=== PATIENT | female | born 1955 | race Caucasian/White ===

== ENCOUNTER 2018-05-08 08:33 | Outpatient (CLI) | payer OTHER | END 2018-05-08 08:34 | disposition home or self-care (01) | LOC: BICMAMMO 08:33 | PROVIDERS: ATTEND Family Medicine | DX: Z12.31 Encounter for screening mammogram for malignant neoplasm of breast (principal); Z80.3 Family history of malignant neoplasm of breast; Z85.118 Personal history of other malignant neoplasm of bronchus and lung | CPT/HCPCS: 77063; 77067 ==

== ENCOUNTER 2019-08-20 11:04 | Outpatient (CLI) | payer OTHER ==
--- NOTE | 2019-08-20 14:24 | MMO ---
Bilateral MAMMO Bilat Screen [facility]. CLINICAL HISTORY: Patient is 63 years old and is seen for screening. The patient has the following family history of breast cancer: maternal aunt, malignant (generic). The patient has a history of lung cancer at age 54. VIEWS: The views performed were: bilateral craniocaudal with tomosynthesis and bilateral mediolateral oblique with tomosynthesis. FILMS COMPARED: The present examination has been compared to prior imaging studies performed at [facility] on 03/15/2013, 02/22/2015, 04/16/2016 and 05/08/2018. This study has been interpreted with the assistance of computer-aided detection. MAMMOGRAM FINDINGS: There are scattered fibroglandular densities. There are no suspicious masses, suspicious calcifications, or new areas of architectural distortion. IMPRESSION: THERE IS NO MAMMOGRAPHIC EVIDENCE OF MALIGNANCY. A ROUTINE FOLLOW-UP MAMMOGRAM IN 1 YEAR IS RECOMMENDED. THE RESULTS OF THIS EXAM WERE SENT TO THE PATIENT. ACR BI-RADS Category 1 - Negative MAMMOGRAPHY NOTE: 1. A negative mammogram report should not delay a biopsy if a dominant of clinically suspicious mass is present. 2. Approximately 10% to 15% of breast cancers are not detected by mammography. 3. Adenosis and dense breasts may obscure an underlying neoplasm. Reported by: MARY PAEZ MD Electonically Signed: [id number]
== END 2019-08-20 11:05 | disposition home or self-care (01) ==
LOC: BICMAMMO 11:04
PROVIDERS: ATTEND Family Medicine
DX: Z12.31 Encounter for screening mammogram for malignant neoplasm of breast (principal); Z80.3 Family history of malignant neoplasm of breast; Z85.118 Personal history of other malignant neoplasm of bronchus and lung
CPT/HCPCS: 77063; 77067

== ENCOUNTER 2020-11-23 18:56 | Inpatient (IN) | payer MEDICARE ==
[2020-11-23 19:20] LABS: #Eosinphils 0.2 thou/uL (0.0-0.7); #Monocytes 0.8 thou/uL (0.11-0.59); #Neutrophils 8.4 thou/uL (1.40-6.50); %Basophils 0.4 % (0.0-1.0); %Eosinophils 1.8 % (0.0-10.0); %Lymphocytes 17.2 % (21.0-51.0); %Monocytes 6.8 % (0.0-10.0); %Neutrophils 73.8 % (42.0-75.0); Hemoglobin 10.7 g/dL (12.0-16.0); Mean Corpuscular HGB CONC 34.1 g/dL (32.0-36.0); Mean Corpuscular Hemoglobin 29.7 pg (27.0-31.0); Mean Corpuscular Volume 86.9 fL (78.0-98.0); Mean Platelet Volume 6.9 fL (7.4-10.4); Platelet Count 307 thou/uL (130-400); RBC Distribution Width 13.4 % (11.5-14.5); Red Blood Cell (RBC) Count 3.61 mill/uL (4.20-5.40); White Blood Cell (WBC) Count 11.4 thou/uL (4.8-10.8)
[2020-11-23 19:28] LABS: PTT 27.6 sec (22.9-36.1); Prothrombin Time 13.2 sec (12.0-14.7)
[2020-11-23 19:39] LABS: ALT (SGPT) 23 U/L (8-55); AST (SGOT) 24 U/L (5-34); Albumin 4.2 g/dL (3.4-4.8); Alkaline Phosphatase 129 U/L (40-110); Anion Gap 16 mmol/L (10-20); BUN (Urea Nitrogen) 33 mg/dL (9.8-20.1); Bilirubin, Total 0.4 mg/dL (0.2-1.2); Calc. Creatinine Clearance 0 mL/min (70-130); Calcium 9.6 mg/dL (7.8-10.44); Carbon Dioxide 26 mmol/L (23-31); Chloride 94 mmol/L (98-107); Globulin 3.4 g/dL (2.4-3.5); Glucose 124 mg/dL (80-115); Potassium 3.6 mmol/L (3.5-5.1); Protein, Total 7.6 g/dL (5.8-8.1); Sodium 132 mmol/L (136-145)
[2020-11-23] MEDS ORDERED: hydrALAZINE 25 MG TAB ONE (20:41)
[2020-11-23] MEDS ORDERED: hydrALAZINE 20 MG/ML VIAL ONE (20:44)
[2020-11-23] MEDS ORDERED: niCARdipine 20MG In NaCl 20 MG/200 ML BAG ONE (22:08)
[2020-11-24 00:13] LABS: SARS-CoV-2 NAA Rapid Test Not Detected (NotDetected)
[2020-11-24] MEDS ORDERED: niCARdipine 25 MG in Sodium Chloride 0.9% 250 ML 240 ML IVPB SCH (01:00)
[2020-11-24] MEDS ORDERED: Acetaminophen 325 MG TAB PO PRN ×2 (01:00→02:23)
[2020-11-24] MEDS ORDERED: Ondansetron ODT 4 MG TAB SL PRN (01:00)
[2020-11-24] MEDS ORDERED: Ondansetron PF 4 MG/2 ML Vial IVP PRN ×2 (01:00→02:23)
[2020-11-24 01:04] VITALS: BMI 24.8
[2020-11-24] MEDS ORDERED: Melatonin 3 MG TAB PO PRN (02:29)
[2020-11-24] MEDS ORDERED: Amitriptyline HCl 100 MG TAB PO SCH ×2 (02:30→21:00)
[2020-11-24] MEDS ORDERED: HumaLOG 300 UNITS/3 ML VIAL SC PRN (02:31)
[2020-11-24] MEDS ORDERED: Dextrose 5% in Water 1,000 ML IV PRN (02:31)
[2020-11-24] MEDS ORDERED: Dextrose 50% Abboject 50 ML SYRINGE SLOW IVP PRN (02:31)
[2020-11-24 04:02] LABS: #Eosinphils 0.2 thou/uL (0.0-0.7); #Lymphocytes 2.1 thou/uL (1.20-3.40); #Monocytes 0.8 thou/uL (0.11-0.59); #Neutrophils 7.9 thou/uL (1.40-6.50); %Basophils 0.4 % (0.0-1.0); %Eosinophils 1.5 % (0.0-10.0); %Lymphocytes 19.1 % (21.0-51.0); %Monocytes 6.9 % (0.0-10.0); Hemoglobin 10.7 g/dL (12.0-16.0); Mean Corpuscular HGB CONC 33.7 g/dL (32.0-36.0); Mean Corpuscular Hemoglobin 29.3 pg (27.0-31.0); Mean Corpuscular Volume 86.8 fL (78.0-98.0); Mean Platelet Volume 7.5 fL (7.4-10.4); Platelet Count 305 thou/uL (130-400); RBC Distribution Width 13.5 % (11.5-14.5); Red Blood Cell (RBC) Count 3.64 mill/uL (4.20-5.40)
[2020-11-24 04:23] LABS: Anion Gap 15 mmol/L (10-20); BUN (Urea Nitrogen) 30 mg/dL (9.8-20.1); Calc. Creatinine Clearance 40 mL/min (70-130); Calcium 9.2 mg/dL (7.8-10.44); Carbon Dioxide 28 mmol/L (23-31); Chloride 97 mmol/L (98-107); Glucose 101 mg/dL (80-115); Potassium 3.3 mmol/L (3.5-5.1); Sodium 137 mmol/L (136-145)
[2020-11-24] MEDS ORDERED: Potassium Chloride 20 MEQ TAB PO SCH (08:45)
[2020-11-24] MEDS: Famotidine 20 MG TAB PO SCH (09:00)
[2020-11-24] MEDS: Hydrochlorothiazide 25 MG TAB PO SCH (09:00)
[2020-11-24] MEDS ORDERED: Acyclovir 400 mg Tablet PO SCH (09:00)
[2020-11-24] MEDS: DULoxetine 60 MG CAP PO SCH (09:00)
[2020-11-24] MEDS: Ferrous Sulfate 325 MG TAB PO SCH (09:00)
[2020-11-24] MEDS: Valsartan 80 MG TAB PO SCH (09:00)
[2020-11-24] MEDS ORDERED: Amlodipine 5 MG TAB PO SCH (11:00)
[2020-11-24] MEDS ORDERED: Simvastatin 10 MG TAB PO SCH (21:00)
[2020-11-24] MEDS ORDERED: Non-Formulary Item 1 EACH (Melatonin/Pyridoxine [Melatonin 5 Mg Tablet] 1 EACH Tablet) PO SCH (21:00)
[2020-11-25 04:17] LABS: #Basophils 0.1 thou/uL (0.0-0.2); #Eosinphils 0.4 thou/uL (0.0-0.7); #Lymphocytes 1.7 thou/uL (1.20-3.40); #Monocytes 0.8 thou/uL (0.11-0.59); #Neutrophils 6.9 thou/uL (1.40-6.50); %Basophils 0.6 % (0.0-1.0); %Eosinophils 3.7 % (0.0-10.0); %Lymphocytes 17.4 % (21.0-51.0); %Monocytes 8.5 % (0.0-10.0); %Neutrophils 69.8 % (42.0-75.0); Mean Corpuscular HGB CONC 34.1 g/dL (32.0-36.0); Mean Corpuscular Volume 87.8 fL (78.0-98.0); Mean Platelet Volume 7.2 fL (7.4-10.4); Platelet Count 313 thou/uL (130-400); RBC Distribution Width 13.6 % (11.5-14.5); Red Blood Cell (RBC) Count 3.67 mill/uL (4.20-5.40); White Blood Cell (WBC) Count 9.8 thou/uL (4.8-10.8)
[2020-11-25 04:31] LABS: Anion Gap 15 mmol/L (10-20); BUN (Urea Nitrogen) 26 mg/dL (9.8-20.1); Calc. Creatinine Clearance 37 mL/min (70-130); Calcium 9.2 mg/dL (7.8-10.44); Carbon Dioxide 27 mmol/L (23-31); Chloride 100 mmol/L (98-107); Glucose 87 mg/dL (80-115); Potassium 3.9 mmol/L (3.5-5.1); Sodium 138 mmol/L (136-145)
[2020-11-25] MEDS: DULoxetine 60 MG CAP PO SCH (08:02)
[2020-11-25] MEDS: Ferrous Sulfate 325 MG TAB PO SCH (08:03)
[2020-11-25] MEDS: Famotidine 20 MG TAB PO SCH (08:03)
[2020-11-25] MEDS: Valsartan 80 MG TAB PO SCH (08:04)
[2020-11-25] MEDS: Hydrochlorothiazide 25 MG TAB PO SCH (08:04)
[2020-11-25] MEDS ORDERED: Enoxaparin Sodium 40 MG/0.4 ML SYRINGE SC SCH (09:00)
[2020-11-25] MEDS ORDERED: Amlodipine 5 MG TAB PO SCH (09:00)
[2020-11-25 12:15] VITALS: BP 153/79; TEMP 98.4
[2020-11-25 15:08] LABS: Cardiac Risk 4.6 (Less than 4.5)
== END 2020-11-25 15:30 | disposition home or self-care (01) | DRG 69 ==
LOC: ERS 18:56 → CCU 23:09 → 2NO 11-24 14:13
PROVIDERS: ADMIT Internal Medicine; ATTEND Hospitalist
DX: G45.9 Transient cerebral ischemic attack, unspecified (principal); R47.01 Aphasia; I16.1 Hypertensive emergency; Z20.822 Contact with and (suspected) exposure to COVID-19; E78.00 Pure hypercholesterolemia, unspecified; F41.9 Anxiety disorder, unspecified; F32.9 Major depressive disorder, single episode, unspecified; M79.7 Fibromyalgia; I16.0 Hypertensive urgency; I12.9 Hypertensive chronic kidney disease with stage 1 through stage 4 chronic kidney disease, or unspecified chronic kidney disease; N18.30 Chronic kidney disease, stage 3 unspecified; E11.22 Type 2 diabetes mellitus with diabetic chronic kidney disease; Z85.118 Personal history of other malignant neoplasm of bronchus and lung; Z79.84 Long term (current) use of oral hypoglycemic drugs; Z79.899 Other long term (current) drug therapy
CPT/HCPCS: 0240U; 36415; 36416; 70450; 70551; 71045; 80048; 80053; 80061; 84443; 84484; 85025; 85610; 85730; 93005; 93306; 93880; 93976; 94760; 96365; 96366; 96375; 99292; J0360; J1650

== ENCOUNTER 2022-06-07 08:58 | Outpatient (CLI) | payer MEDICARE | END 2022-06-07 08:59 | disposition home or self-care (01) | LOC: BICULT 08:58 | PROVIDERS: ATTEND Nurse Practitioner Family | DX: R74.8 Abnormal levels of other serum enzymes (principal); K76.0 Fatty (change of) liver, not elsewhere classified | CPT/HCPCS: 76700 ==

== ENCOUNTER 2022-09-15 08:05 | Emergency (ER) | payer MEDICARE ==
[2022-09-15 08:50] LABS: #Eosinphils 0.5 thou/uL (0.0-0.7); #Lymphocytes 1.7 thou/uL (1.20-3.40); #Monocytes 0.6 thou/uL (0.11-0.59); %Basophils 0.4 % (0.0-1.0); %Eosinophils 5.1 % (0.0-10.0); %Lymphocytes 17.1 % (21.0-51.0); %Monocytes 6.5 % (0.0-10.0); %Neutrophils 70.9 % (42.0-75.0); Hemoglobin 11.6 g/dL (12.0-16.0); Mean Corpuscular HGB CONC 35.7 g/dL (32.0-36.0); Mean Corpuscular Volume 92.3 fl (78.0-98.0); Mean Platelet Volume 8.8 fL (7.4-10.4); Platelet Count 204 10x3/uL (130-400); RBC Distribution Width 13.3 % (11.5-14.5); Red Blood Cell (RBC) Count 3.53 mill/uL (4.20-5.40); White Blood Cell (WBC) Count 9.8 10x3/uL (4.8-10.8)
[2022-09-15 09:06] LABS: ALT (SGPT) 32 U/L (8-55); AST (SGOT) 32 U/L (5-34); Albumin 3.8 g/dL (3.4-4.8); Alkaline Phosphatase 227 U/L (40-110); Anion Gap 13 mmol/L (10-20); BUN (Urea Nitrogen) 37 mg/dL (9.8-20.1); Bilirubin, Total 0.8 mg/dL (0.2-1.2); Calc. Creatinine Clearance 0 mL/min (70-130); Calcium 9.5 mg/dL (7.8-10.44); Carbon Dioxide 29 mmol/L (23-31); Chloride 98 mmol/L (98-107); Estimated GFR 19; Globulin 3.4 g/dL (2.4-3.5); Glucose 138 mg/dL (80-115); Lipase 35 U/L (8-78); Magnesium 1.8 mg/dL (1.6-2.6); Potassium 3.8 mmol/L (3.5-5.1); Protein, Total 7.2 g/dL (5.8-8.1); Sodium 136 mmol/L (136-145)
[2022-09-15 09:26] LABS: Bilirubin Negative (Negative); Blood, Urine Negative (Negative); Clarity Clear (Clear); Glucose, Urine (Dipstick) Normal (Negative); Ketone, Urine Negative (Negative); Leukocyte Negative Leu/uL (Negative); Nitrite Negative (Negative); Protein, Urine (Dipstick) Negative (Neg-Trace); Specific Gravity, Urine 1.013 (1.002-1.036); Urobilinogen Normal mg/dL (Less than 2); pH, Urine 5.5 (5.0-9.0)
[2022-09-15 11:50] LABS: Troponin I Less than 0.010 ng/mL (< 0.028)
== END 2022-09-15 12:28 | disposition home or self-care (01) ==
LOC: ERS 08:05
DX: R53.1 Weakness (principal); R29.6 Repeated falls; I10 Essential (primary) hypertension; E11.9 Type 2 diabetes mellitus without complications; E78.00 Pure hypercholesterolemia, unspecified; E11.319 Type 2 diabetes mellitus with unspecified diabetic retinopathy without macular edema; Z79.899 Other long term (current) drug therapy; Z79.82 Long term (current) use of aspirin
CPT/HCPCS: 36415; 36416; 70450; 71045; 80053; 81003; 83690; 83735; 83880; 84484; 85025; 93005; 94760

== ENCOUNTER 2024-08-09 17:46 | Inpatient (IN) | payer MEDICARE ==
[2024-08-09 18:20] LABS: #Basophils 0.03 10x3/uL (0.0-0.2); %Basophils 0.2 % (0.0-1.0); %Lymphocytes 7.3 % (21.0-51.0); %Monocytes 5.9 % (0.0-10.0); %Neutrophils 85.2 % (42.0-75.0); Hematocrit 30.3 % (36.0-47.0); Hemoglobin 9.5 g/dL (12.0-16.0); Mean Corpuscular HGB CONC 31.4 g/dL (32.0-36.0); Mean Corpuscular Hemoglobin 28.1 pg (27.0-31.0); Mean Corpuscular Volume 89.6 fL (78.0-98.0); Mean Platelet Volume 10.7 fL (7.4-10.4); Platelet Count 241 10x3/uL (130-400); RBC Distribution Width 13.9 % (11.5-14.5); Red Blood Cell (RBC) Count 3.38 mill/uL (4.20-5.40)
[2024-08-09 18:45] LABS: Troponin I Less than 0.010 ng/mL (< 0.028)
[2024-08-09 18:47] LABS: ALT (SGPT) 32 U/L (8-55); AST (SGOT) 36 U/L (5-34); Albumin 3.4 g/dL (3.4-4.8); Alkaline Phosphatase 266 U/L (40-110); Anion Gap 11 mmol/L (10-20); BUN (Urea Nitrogen) 27 mg/dL (9.8-20.1); Bilirubin, Total 0.5 mg/dL (0.2-1.2); CK (CPK) 34 U/L (29-168); Calc. Creatinine Clearance 0 mL/min (70-130); Calcium 8.7 mg/dL (7.8-10.44); Carbon Dioxide 25 mmol/L (23-31); Chloride 104 mmol/L (98-107); Estimated GFR 28; Globulin 3.3 g/dL (2.4-3.5); Glucose 151 mg/dL (80-115); Potassium 4.1 mmol/L (3.5-5.1); Protein, Total 6.7 g/dL (5.8-8.1); Sodium 136 mmol/L (136-145)
[2024-08-09] MEDS ORDERED: Dextrose 50% Abboject 50 ML SYRINGE SLOW IVP PRN (18:58)
[2024-08-09] MEDS ORDERED: Ipratropium/Albuterol 3 ML NEB NEB PRN (18:58)
[2024-08-09] MEDS ORDERED: Dextrose 5% in Water 1,000 ML IV PRN (18:58)
[2024-08-09] MEDS ORDERED: Glucagon 1 MG/ML KIT IM PRN (18:58)
[2024-08-09] MEDS ORDERED: hydrALAZINE 20 MG/ML VIAL SLOW IVP PRN ×2 (18:58→19:35)
[2024-08-09] MEDS ORDERED: Labetalol HCl 100 MG/20 ML VIAL SLOW IVP PRN (19:35)
[2024-08-09] MEDS: Sodium Chloride 0.9% 1,000 ML IV SCH (21:23)
[2024-08-09] MEDS: Acetaminophen 325 MG TAB PO SCH (21:23)
[2024-08-09] MEDS: Ondansetron PF 4 MG/2 ML Vial IVP PRN (21:24)
[2024-08-09] MEDS: Famotidine/PF 20 mg/2ml Vial SLOW IVP SCH (21:24)
[2024-08-09] MEDS: Acetaminophen 325 MG TAB ONE (21:34)
[2024-08-09] MEDS: hydrALAZINE 20 MG/ML VIAL SLOW IVP PRN (22:29)
[2024-08-09] MEDS: Morphine 2 MG/ML VIAL SLOW IVP SCH (23:13)
[2024-08-10] MEDS: Labetalol HCl 100 MG/20 ML VIAL SLOW IVP PRN (02:06)
[2024-08-10] MEDS: niCARdipine 25 MG in Sodium Chloride 0.9% 250 ML 250 ML IVPB SCH (03:19)
[2024-08-10 05:00] LABS: #Basophils 0.03 10x3/uL (0.0-0.2); %Basophils 0.4 % (0.0-1.0); %Eosinophils 1.2 % (0.0-10.0); %Lymphocytes 12.5 % (21.0-51.0); %Monocytes 10.4 % (0.0-10.0); %Neutrophils 74.9 % (42.0-75.0); Hematocrit 25.8 % (36.0-47.0); Hemoglobin 8.3 g/dL (12.0-16.0); Mean Corpuscular HGB CONC 32.2 g/dL (32.0-36.0); Mean Corpuscular Hemoglobin 29.1 pg (27.0-31.0); Mean Corpuscular Volume 90.5 fL (78.0-98.0); Mean Platelet Volume 10.4 fL (7.4-10.4); Platelet Count 230 10x3/uL (130-400); RBC Distribution Width 13.8 % (11.5-14.5); Red Blood Cell (RBC) Count 2.85 mill/uL (4.20-5.40)
[2024-08-10 05:08] LABS: Anion Gap 12 mmol/L (10-20); BUN (Urea Nitrogen) 23 mg/dL (9.8-20.1); Calc. Creatinine Clearance 34 mL/min (70-130); Calcium 8.4 mg/dL (7.8-10.44); Carbon Dioxide 23 mmol/L (23-31); Chloride 108 mmol/L (98-107); Estimated GFR 35; Glucose 105 mg/dL (80-115); Potassium 3.8 mmol/L (3.5-5.1); Sodium 139 mmol/L (136-145)
[2024-08-10 05:29] LABS: INR-International Normal Ratio 1.2; PTT 28.1 sec (22.9-36.1); Prothrombin Time 14.9 sec (12.0-14.7)
[2024-08-10 06:42] VITALS: BMI 22.4
[2024-08-10] MEDS: Carvedilol 25 MG TAB PO SCH (17:18)
[2024-08-10] MEDS: Amlodipine 5 MG TAB PO SCH (19:49)
[2024-08-10] MEDS ORDERED: Benzocaine/Menthol 1 LOZ LOZ PO PRN (20:37)
[2024-08-10] MEDS: hydrALAZINE 25 MG TAB PO SCH (21:11)
[2024-08-10] MEDS: Amitriptyline HCl 100 MG TAB PO SCH (21:11)
[2024-08-10] MEDS: Famotidine/PF 20 mg/2ml Vial SLOW IVP SCH (21:12)
[2024-08-11] MEDS ORDERED: Acetaminophen 325 MG TAB ONE ×4 (00:11→17:10)
[2024-08-11] MEDS ORDERED: Amlodipine 5 MG TAB ONE (08:11)
[2024-08-11] MEDS ORDERED: Atorvastatin Calcium 10 MG TAB ONE (08:11)
[2024-08-11] MEDS ORDERED: Carvedilol 25 MG TAB ONE ×2 (08:11→17:10)
[2024-08-11] MEDS ORDERED: hydrALAZINE 25 MG TAB ONE ×2 (08:11→21:50)
[2024-08-11] MEDS ORDERED: Valsartan 80 MG TAB ONE (08:11)
[2024-08-11] MEDS ORDERED: Amitriptyline HCl 100 MG TAB ONE (21:50)
[2024-08-12] MEDS ORDERED: Labetalol HCl 100 MG/20 ML VIAL ONE (06:15)
[2024-08-12] MEDS ORDERED: Valsartan 80 MG TAB ONE (08:34)
[2024-08-12] MEDS ORDERED: Carvedilol 25 MG TAB ONE (08:34)
[2024-08-12] MEDS ORDERED: Amlodipine 5 MG TAB ONE (08:34)
[2024-08-12] MEDS ORDERED: hydrALAZINE 25 MG TAB ONE ×2 (08:34→21:50)
[2024-08-12] MEDS ORDERED: Atorvastatin Calcium 10 MG TAB ONE (08:34)
[2024-08-12] MEDS ORDERED: Acetaminophen 325 MG TAB ONE (12:38)
[2024-08-12] MEDS ORDERED: Amitriptyline HCl 100 MG TAB ONE (21:50)
[2024-08-13] MEDS ORDERED: Acetaminophen 325 MG TAB ONE (06:00)
[2024-08-13] MEDS ORDERED: Carvedilol 25 MG TAB ONE (09:00)
[2024-08-13] MEDS ORDERED: hydrALAZINE 25 MG TAB ONE (09:00)
[2024-08-13] MEDS ORDERED: Valsartan 80 MG TAB ONE (09:00)
[2024-08-13] MEDS ORDERED: Atorvastatin Calcium 10 MG TAB ONE (09:00)
[2024-08-13] MEDS ORDERED: Amlodipine 5 MG TAB ONE (09:00)
[2024-08-13 13:55] VITALS: BMI 22.1
[2024-08-13] MEDS: Valsartan 80 MG TAB PO SCH (19:55)
[2024-08-13] MEDS: Amlodipine 5 MG TAB PO SCH (19:55)
[2024-08-13] MEDS: Atorvastatin Calcium 10 MG TAB PO SCH (19:55)
[2024-08-14 11:05] VITALS: TEMP 98.3
[2024-08-14 14:31] VITALS: BP 177/76
== END 2024-08-14 17:20 | disposition home health service (06) | DRG 83 ==
LOC: ERS 17:46 → CCU 18:58 → 2SE 08-11 09:11
PROVIDERS: ADMIT Surgery; ATTEND Surgery
PROC: 6A550Z2 Pheresis of Platelets, Single (ICD-10-PCS; principal; 2024-08-09)
PROC: 30233R1 Transfusion of Nonautologous Platelets into Peripheral Vein, Percutaneous Approach (ICD-10-PCS; 2024-08-09)
DX: S06.5XAA Traumatic subdural hemorrhage with loss of consciousness status unknown, initial encounter (principal); N17.9 Acute kidney failure, unspecified; W18.30XA Fall on same level, unspecified, initial encounter; E78.00 Pure hypercholesterolemia, unspecified; N18.30 Chronic kidney disease, stage 3 unspecified; I12.9 Hypertensive chronic kidney disease with stage 1 through stage 4 chronic kidney disease, or unspecified chronic kidney disease; E11.22 Type 2 diabetes mellitus with diabetic chronic kidney disease; F32.A Depression, unspecified; F41.9 Anxiety disorder, unspecified; S00.12XA Contusion of left eyelid and periocular area, initial encounter; E78.5 Hyperlipidemia, unspecified; Z98.890 Other specified postprocedural states; Z79.899 Other long term (current) drug therapy; Z79.82 Long term (current) use of aspirin; D64.9 Anemia, unspecified
CPT/HCPCS: 36415; 36416; 36430; 70450; 72125; 72170; 80048; 80053; 82550; 84484; 85025; 85610; 85730; 86850; 86900; 86901; 93005; G0390; J0360; J2272; J2405; J3490; J7030; J7050; P9035

== ENCOUNTER 2024-08-24 02:23 | Inpatient (IN) | payer MEDICARE ==
[2024-08-24 08:33] LABS: #Basophils 0.04 10x3/uL (0.0-0.2); %Basophils 0.4 % (0.0-1.0); %Eosinophils 2.8 % (0.0-10.0); %Lymphocytes 13.9 % (21.0-51.0); %Monocytes 8.2 % (0.0-10.0); %Neutrophils 74.4 % (42.0-75.0); Hemoglobin 8.8 g/dL (12.0-16.0); Mean Corpuscular HGB CONC 31.4 g/dL (32.0-36.0); Mean Corpuscular Hemoglobin 28.4 pg (27.0-31.0); Mean Corpuscular Volume 90.3 fL (78.0-98.0); Platelet Count 309 10x3/uL (130-400); RBC Distribution Width 14.4 % (11.5-14.5)
[2024-08-24 08:54] LABS: ALT (SGPT) 33 U/L (8-55); AST (SGOT) 32 U/L (5-34); Albumin 3.2 g/dL (3.4-4.8); Alkaline Phosphatase 241 U/L (40-110); Anion Gap 12 mmol/L (10-20); BUN (Urea Nitrogen) 29 mg/dL (9.8-20.1); Bilirubin, Total 0.4 mg/dL (0.2-1.2); Calc. Creatinine Clearance 0 mL/min (70-130); Calcium 9.2 mg/dL (7.8-10.44); Carbon Dioxide 22 mmol/L (23-31); Chloride 108 mmol/L (98-107); Estimated GFR 47; Globulin 3.2 g/dL (2.4-3.5); Glucose 110 mg/dL (80-115); Protein, Total 6.4 g/dL (5.8-8.1); Sodium 138 mmol/L (136-145)
[2024-08-24 09:25] LABS: Bacteria/HPF None Seen HPF (None Seen); Bilirubin Negative (Negative); Blood, Urine Negative (Negative); CAUTI Indications for Culture Alt mental st,lethar; Clarity Clear (Clear); Glucose, Urine (Dipstick) Normal (Negative); Ketone, Urine Negative (Negative); Leukocyte Negative Leu/uL (Negative); Nitrite Negative (Negative); Protein, Urine (Dipstick) Negative (Neg-Trace); RBC/HPF None Seen HPF (0-3); Specific Gravity, Urine 1.009 (1.002-1.036); Squamous Epithelial None Seen HPF (0-3); Urobilinogen Normal mg/dL (Less than 2); WBC/HPF 0-3 HPF (0-3)
[2024-08-24 09:27] LABS: Urine Culture Reflex No No
[2024-08-24] MEDS ORDERED: Ondansetron PF 4 MG/2 ML Vial IVP PRN (18:55)
[2024-08-24] MEDS ORDERED: Ondansetron ODT 4 MG TAB PO PRN (18:55)
[2024-08-24 22:34] VITALS: BMI 21.9
[2024-08-24] MEDS: Famotidine 20 MG TAB PO SCH (22:34)
[2024-08-24] MEDS: Acetaminophen 325 MG TAB PO PRN (22:34)
[2024-08-25] MEDS: Valsartan 80 MG TAB PO SCH (08:18)
[2024-08-25] MEDS: DULoxetine 60 MG CAP PO SCH (08:18)
[2024-08-25] MEDS: hydrALAZINE 25 MG TAB PO SCH (08:18)
[2024-08-25] MEDS: Aspirin 81 mg Enteric Coated Tablet PO SCH (08:18)
[2024-08-25] MEDS: Carvedilol 25 MG TAB PO SCH (08:18)
[2024-08-25] MEDS: Amlodipine 5 MG TAB PO SCH (08:18)
[2024-08-25 08:34] LABS: #Basophils 0.04 10x3/uL (0.0-0.2); %Basophils 0.5 % (0.0-1.0); %Eosinophils 3.3 % (0.0-10.0); %Lymphocytes 12.7 % (21.0-51.0); %Monocytes 8.2 % (0.0-10.0); %Neutrophils 75.1 % (42.0-75.0); Hematocrit 29.7 % (36.0-47.0); Hemoglobin 9.5 g/dL (12.0-16.0); Mean Corpuscular Hemoglobin 28.4 pg (27.0-31.0); Mean Corpuscular Volume 88.9 fL (78.0-98.0); Mean Platelet Volume 10.4 fL (7.4-10.4); Platelet Count 332 10x3/uL (130-400); RBC Distribution Width 14.3 % (11.5-14.5); Red Blood Cell (RBC) Count 3.34 mill/uL (4.20-5.40)
[2024-08-25 08:55] LABS: Anion Gap 13 mmol/L (10-20); BUN (Urea Nitrogen) 26 mg/dL (9.8-20.1); Calc. Creatinine Clearance 39 mL/min (70-130); Carbon Dioxide 23 mmol/L (23-31); Chloride 107 mmol/L (98-107); Estimated GFR 42; Glucose 97 mg/dL (80-115); Potassium 4.2 mmol/L (3.5-5.1); Sodium 139 mmol/L (136-145)
[2024-08-25] MEDS: Atorvastatin Calcium 10 MG TAB PO SCH (21:12)
[2024-08-25] MEDS: Amitriptyline HCl 100 MG TAB PO SCH (21:12)
[2024-08-26] MEDS: Famotidine 20 MG TAB PO SCH (08:11)
[2024-08-26 19:30] VITALS: BP 136/55; TEMP 98.1
[2024-08-27] MEDS ORDERED: FLU (Fluad Triv) TS24-25 (65UP)/MF59C/PF 45 MCG/0.5 ML Syringe IM ONE (09:00)
== END 2024-08-26 19:05 | DRG 948 ==
LOC: ERS 02:23 → T4-B 19:05
PROVIDERS: ADMIT Student in an Organized Health Care Education/Training Program; ATTEND Internal Medicine
DX: R53.1 Weakness (principal); I69.354 Hemiplegia and hemiparesis following cerebral infarction affecting left non-dominant side; I12.9 Hypertensive chronic kidney disease with stage 1 through stage 4 chronic kidney disease, or unspecified chronic kidney disease; E11.22 Type 2 diabetes mellitus with diabetic chronic kidney disease; E78.5 Hyperlipidemia, unspecified; F32.A Depression, unspecified; N18.30 Chronic kidney disease, stage 3 unspecified; M79.7 Fibromyalgia; F41.9 Anxiety disorder, unspecified; Z88.8 Allergy status to other drugs, medicaments and biological substances; Z79.82 Long term (current) use of aspirin; Z79.899 Other long term (current) drug therapy; Z79.02 Long term (current) use of antithrombotics/antiplatelets
CPT/HCPCS: 36415; 36416; 70450; 72192; 80048; 80053; 81001; 85025